=== PATIENT | female | born 1960 | race Caucasian/White ===

== ENCOUNTER 2017-03-21 19:33 | Emergency (ER) | payer BC, OTHER ==
[~2017-03-21] VITALS: Ht 152.4 cm; Wt 77.0 kg
[2017-03-21 19:42] VITALS: Ht 152.4 cm; Wt 77.0 kg
--- NOTE | 2017-03-21 21:35 | ERD ---
ER Documentation Chief Complaint Date/Time DATE: 03/21/17 TIME: 21:32 Chief Complaint BIB SELF, CC: SCRATCH ON LEFT WRIST, AND LEFT GLUTEAL PAIN S/P FALL HPI 56-year-old female presents here in emergency department for a dog scratch in the left wrist and abdomen area, was scratched by a dog yesterday. Patient's complaint of pain sharp pain 4/10 scale, is worse upon touching the area. Patient fell backward, landed on the left buttock area. Described the pain as sharp pain, 4/and scale, is worse upon touching the area. ROS All systems reviewed and are negative except as per history of present illness. Medications Home Meds Reported Medications [none] Unknown Strength No Conflict Check 03/21/17 Allergies Allergies: Coded Allergies: No Known Drug Allergies (Verified Allergy, Mild, 10/11/09) PMhx/Soc History of Surgery: No Hx Neurological Disorder: No Hx Respiratory Disorders: No Hx Cardiac Disorders: Yes (htn, CHOLESTEROL) Hx Miscellaneous Medical Probl: Yes (DM, GASTRITIS, ARTHRITIS) Hx Alcohol Use: Yes Hx Substance Use: No Hx Tobacco Use: Yes Smoking Status: Current every day smoker FmHx Family History: No coronary disease, No diabetes, No other Physical Exam Vitals Vital Signs Date Time Temp Pulse Resp B/P Pulse Ox O2 Delivery O2 Flow Rate FiO2 03/21/17 19:42 98.0 81 18 129/78 100 Physical Exam GENERAL: The patient is well developed and appropriate for usual state of health, in no apparent distress. CHEST: Clear to auscultation bilaterally. There are no rales, wheezes or rhonchi. HEART: Regular rate and rhythm. No murmurs, clicks, rubs or gallops. No S3 or S4. ABDOMEN: Soft, nontender and nondistended. Good bowel sounds. No rebound or guarding. No gross peritonitis. No gross organomegaly or masses. No Gonzales sign or McBurney point tenderness. BACK: No midline or flank tenderness.Noted tenderness on palpation on the left buttock, no bruising noted, able to do full range of motion of the left hip without any restriction. EXTREMITIES: Equal pulses bilaterally. There is no peripheral clubbing, cyanosis or edema. No focal swelling or erythema. Full range of motion. Grossly neurovascularly intact. NEURO: Alert and oriented. Cranial nerves 2-12 intact. Motor strength in all 4 extremities with 5/5 strength. Sensation grossly intact. Normal speech and gait. SKIN:noted abrasion in the left wrist in the abdomen area with mild ecchymosis noted. There is no apparent rash or petechia. The skin is warm and dry. HEMATOLOGIC AND LYMPHATIC: There is no evidence of excessive bruising or lymphedema. No gross cervical, axillary, or inguinal lymphadenopathy. Results 24 hrs PROCEDURE: XR Hip. CLINICAL INDICATION: Right buttock pain after fall TECHNIQUE: AP and frog lateral views of the right hip were performed. COMPARISON: None. FINDINGS: There is normal mineralization and alignment. No fracture or osseous lesion is identified. There are normal joints without evidence of arthritis or effusion. The soft tissues are unremarkable. IMPRESSION: Unremarkable right hip. RPTAT: [facility] Physician Onel Date Time Electronically viewed and signed by Physician Onel on 03/21/2017 22:42 RS/ CC: RODRIGO PITTMAN LACE FINISHER PROCEDURE: XR Pelvis. CLINICAL INDICATION: Right buttock pain after fall. TECHNIQUE: Single AP view of the pelvis. COMPARISON: No prior studies are available for comparison. FINDINGS: There are no fractures or dislocations. There are no arthritic, neoplastic or inflammatory changes. The osseous mineralization is normal. The sacroiliac joints are normal. Calcified uterine fibroid. IMPRESSION: No acute fracture. RPTAT: [facility] Physician Onel Date Time Electronically viewed and signed by Physician Onel on 03/21/2017 22:41 RS/ CC: RODRIGO PITTMAN LACE FINISHER Procedures/MDM Medical Decision Making: Patient's pain is most likely consistent with a back and hip contusion. There is no suspicion for neurovascular compromise. Patient has intact sensation and circulation of the affected extremity. There is low suspicion for septic arthritis. Patient does not have any fever. Radiology exams of the affected area does not show any fracture or dislocation.she also has dog scratches, was given Augmentin to prevent infection on affected areas. Disposition: Home. Patient is given prescription for ibuprofen for pain, augmentin. Patient was advised to apply ice on affected area. Patient was advised that if symptoms are worse, numbness, tingling, high fever, unable to move joint, worsening symptoms, to return to emergency department immediately. Otherwise, patient is advised to follow up with the primary care doctor in 5-7 days for reevaluation of symptoms. Departure Diagnosis: Primary Impression: Dog scratch Additional Impressions: Contusion of hip Encounter type: initial encounter Laterality: left Qualified Code: S70.02XA - Contusion of left hip, initial encounter Back contusion Encounter type: initial encounter Laterality: left Qualified Code: S20.222A - Contusion of left side of back, initial encounter Condition: Stable Patient Instructions: Contusion, Back, Hip Contusion, Wound Care Additional Instructions: Patient is given prescription for ibuprofen for pain, augmentin. Patient was advised to apply ice on affected area. Patient was advised that if symptoms are worse, numbness, tingling, high fever, unable to move joint, worsening symptoms, to return to emergency department immediately. Otherwise, patient is advised to follow up with the primary care doctor in 5-7 days for reevaluation of symptoms. RODRIGO PITTMAN NP Mar 21, 2017 21:35
--- NOTE | 2017-03-21 22:42 | RADRPT ---
PROCEDURE: XR Hip. CLINICAL INDICATION: Right buttock pain after fall TECHNIQUE: AP and frog lateral views of the right hip were performed. COMPARISON: None. FINDINGS: There is normal mineralization and alignment. No fracture or osseous lesion is identified. There are normal joints without evidence of arthritis or effusion. The soft tissues are unremarkable. IMPRESSION: Unremarkable right hip. RPTAT: [facility] Physician Onel Date Time Electronically viewed and signed by Physician Onel on 03/21/2017 22:42 RS/
--- NOTE | 2017-03-21 22:42 | RADRPT ---
PROCEDURE: XR Pelvis. CLINICAL INDICATION: Right buttock pain after fall. TECHNIQUE: Single AP view of the pelvis. COMPARISON: No prior studies are available for comparison. FINDINGS: There are no fractures or dislocations. There are no arthritic, neoplastic or inflammatory changes. The osseous mineralization is normal. The sacroiliac joints are normal. Calcified uterine fibroid. IMPRESSION: No acute fracture. RPTAT: [facility] Physician Onel Date Time Electronically viewed and signed by Kathya Garvey Physician on 03/21/2017 22:41 RS/
[2017-03-21] MEDS ORDERED: AMOX1TAB10 PO (23:02)
[2017-03-21] MEDS ORDERED: IBUP-1542 PO (23:02)
== END 2017-03-21 23:09 | disposition home or self-care (01) ==
LOC: FTE 19:33
DX: S60.812A Abrasion of left wrist, initial encounter (principal); S70.02XA Contusion of left hip, initial encounter; S20.222A Contusion of left back wall of thorax, initial encounter; E11.9 Type 2 diabetes mellitus without complications; I10 Essential (primary) hypertension; F17.210 Nicotine dependence, cigarettes, uncomplicated; S30.811A Abrasion of abdominal wall, initial encounter; W54.8XXA Other contact with dog, initial encounter; Y92.9 Unspecified place or not applicable
CPT/HCPCS: 72190; 73510; Z7502